=== PATIENT | female | born 1985 | race Caucasian/White ===

== ENCOUNTER 2018-11-30 16:29 | Inpatient (IN) | payer BC ==
[~2018-11-30] VITALS: Ht 157.5 cm; Wt 110.8 kg
[2018-11-30] MEDS ORDERED: ONDANSETRON PF 4 MG/2 ML VIAL. IVP ONE (17:00)
[2018-11-30] MEDS ORDERED: MORPHINE SULFATE 4 MG/ML DISP.SYRIN. IV ONE ×2 (17:00→20:15)
[2018-11-30] MEDS ORDERED: IV NORMAL SALINE 1,000ML 1,000 ML IV ONE (17:00)
--- NOTE | 2018-11-30 17:08 | PHYS DOC ---
Past History Past Medical History: Diabetes, GERD, Other Additional Past Medical Histor: PCOS (DERRELL TSE DO) Past Surgical History: No Surgical History (DERRELL TSE DO) Alcohol Use: None Drug Use: None (DERRELL TSE DO) Adult General Chief Complaint Chief Complaint: ABDOMINAL PAIN HPI HPI 33-year-old female presents with left-sided abdominal pain. This started around 8 AM this morning. The pain is intense cramping sensation that comes and goes in waves, but does not completely go away. At its worse it is severe. She now has nausea and vomiting due to the pain. She has not had pain like this before. She does have celiac disease, but her celiac flare do not feel like this and she has not had any wheat exposure. She has not had abdominal surgery. No history of diverticula or diverticulitis. She denies constipation. She denies dysuria or increased frequency. She denies fever or chills. (DERRELL TSE DO) Review of Systems Review of Systems Constitutional: Denies fever or chills [] Eyes: Denies change in visual acuity, redness, or eye pain [] HENT: Denies nasal congestion or sore throat [] Respiratory: Denies cough or shortness of breath [] Cardiovascular: No additional information not addressed in HPI [] GI: abdominal pain, nausea, vomiting. Denies bloody stools or diarrhea [] : Denies dysuria or hematuria [] Musculoskeletal: Denies back pain or joint pain [] Integument: Denies rash or skin lesions [] Neurologic: Denies headache, focal weakness or sensory changes [] Endocrine: Denies polyuria or polydipsia [] All other systems were reviewed and found to be within normal limits, except as documented in this note. (DERRELL TSE DO) Current Medications Current Medications Current Medications Medications (Trade) Dose Ordered Sig/Mary Start Time Stop Time Status Last Admin Dose Admin Morphine Sulfate (Morphine 4mg Syringe) 4 mg 1X ONCE 11/30/18 17:00 11/30/18 17:01 UNV Ondansetron HCl (Zofran) 4 mg 1X ONCE 11/30/18 17:00 11/30/18 17:01 DC Sodium Chloride 1,000 ml @ 1,000 mls/hr 1X ONCE 11/30/18 17:00 11/30/18 17:59 (DERRELL TSE DO) Allergies Allergies Allergies Coded Allergies Type Severity Reaction Last Updated Verified Sulfa (Sulfonamide Antibiotics) Allergy Unknown 11/30/18 Yes (DERRELL TSE DO) Physical Exam Physical Exam Constitutional: Well developed, well nourished, mild acute distress, non-toxic appearance. [] HENT: Normocephalic, atraumatic, bilateral external ears normal, oropharynx moist, no oral exudates, nose normal. [] Eyes: PERRLA, EOMI, conjunctiva normal, no discharge. [] Neck: Normal range of motion, no tenderness, supple, no stridor. [] Cardiovascular:Heart rate regular rhythm, no murmur [] Lungs & Thorax: Bilateral breath sounds clear to auscultation [] Abdomen: Bowel sounds normal, soft, left-sided tenderness without guarding, no masses, no pulsatile masses. [] Skin: Warm, dry, no erythema, no rash. [] Back: No tenderness, no CVA tenderness. [] Extremities: No tenderness, no cyanosis, no clubbing, ROM intact, no edema. [] Neurologic: Alert and oriented X 3, normal motor function, normal sensory function, no focal deficits noted. [] Psychologic: Affect normal, judgement normal, mood normal. [] (DERRELL TSE DO) Current Patient Data Vital Signs Vital Signs Date Time Temp Pulse Resp B/P (MAP) Pulse Ox O2 Delivery O2 Flow Rate FiO2 11/30/18 16:39 98.5 110 18 97 Room Air (DERRELL TSE DO) Lab Results Laboratory Tests Test 11/30/18 17:07 11/30/18 17:13 11/30/18 17:59 11/30/18 18:00 Urine Collection Type Unknown Urine Color Yellow Urine Clarity Hazy Urine pH 7.0 Urine Specific [place] 1.015 Urine Protein Neg Urine Glucose (UA) Neg mg/dL Urine Ketones (Stick) 15 mg/dL Urine Blood Neg Urine Nitrite Neg Urine Bilirubin Neg Urine Urobilinogen Dipstick 0.2 mg/dL Urine Leukocyte Esterase Small Urine RBC Rare /HPF Urine WBC 1-4 /HPF Urine Squamous Epithelial Cells Mod /LPF Urine Bacteria Few /HPF Urine Mucus Slight /LPF Urine Test Negative Bedside Urine HCG, Qualitative hcg negative White Blood Count 15.6 x10^3/uL Red Blood Count 4.66 x10^6/uL Hemoglobin 11.8 g/dL Hematocrit 36.7 % Mean Corpuscular Volume 79 fL Mean Corpuscular Hemoglobin 25 pg Mean Corpuscular Hemoglobin Concent 32 g/dL Red Cell Distribution Width 16.9 % Platelet Count 377 x10^3/uL Neutrophils (%) (Auto) 74 % Lymphocytes (%) (Auto) 21 % Monocytes (%) (Auto) 4 % Eosinophils (%) (Auto) 1 % Basophils (%) (Auto) 1 % Neutrophils # (Auto) 11.5 x10^3uL Lymphocytes # (Auto) 3.2 x10^3/uL Monocytes # (Auto) 0.6 x10^3/uL Eosinophils # (Auto) 0.2 x10^3/uL Basophils # (Auto) 0.1 x10^3/uL Segmented Neutrophils % 79 % Band Neutrophils % 1 % Lymphocytes % 19 % Monocytes % 0 % Eosinophils % 1 % Basophils % 0 % Platelet Estimate Adequate Anisocytosis Slight Sodium Level 138 mmol/L Potassium Level 3.7 mmol/L Chloride Level 102 mmol/L Carbon Dioxide Level 23 mmol/L Anion Gap 13 Blood Urea Nitrogen 9 mg/dL Creatinine 0.8 mg/dL Estimated GFR (Cockcroft-Gault) 82.6 BUN/Creatinine Ratio 11 Glucose Level 112 mg/dL Calcium Level 9.0 mg/dL Total Bilirubin 0.2 mg/dL Aspartate Amino Transf (AST/SGOT) 15 U/L Alanine Aminotransferase (ALT/SGPT) 24 U/L Alkaline Phosphatase 86 U/L Total Protein 7.8 g/dL Albumin 3.2 g/dL Albumin/Globulin Ratio 0.7 Lipase 385 U/L Current Medications Medications (Trade) Dose Ordered Sig/Mary Route PRN Reason Start Time Stop Time Status Last Admin Dose Admin Sodium Chloride 1,000 ml @ 1,000 mls/hr 1X ONCE IV 11/30/18 17:00 11/30/18 17:59 DC 11/30/18 18:34 Ondansetron HCl (Zofran) 4 mg 1X ONCE IVP 11/30/18 17:00 11/30/18 17:01 DC 11/30/18 18:34 Morphine Sulfate (Morphine 4mg Syringe) 4 mg 1X ONCE IV 11/30/18 17:00 11/30/18 17:04 DC 11/30/18 18:41 Iohexol (Omnipaque 300 Mg/ml) 75 ml 1X ONCE IV 11/30/18 17:15 11/30/18 17:21 DC 11/30/18 19:10 Morphine Sulfate (Morphine 4mg Syringe) 4 mg 1X ONCE IV 11/30/18 20:15 11/30/18 20:16 DC (SHAYAN BURNS MD) EKG EKG [] (DERRELL TSE DO) Radiology/Procedures Radiology/Procedures [] Impressions: Exam: CT abdomen and pelvis with contrast INDICATION: Abdominal pain TECHNIQUE: Sequential axial images through the abdomen and pelvis obtained following the administration of 75 mL of Omni 300 IV contrast. Sagittal and coronal reformatted images were reconstructed from the axial data and reviewed. Comparisons: None FINDINGS: Heart size is normal. No pericardial effusion. Visualized lung bases are clear. No pleural effusion. Mild hepatic steatosis. Spleen, gallbladder and adrenals are unremarkable. Mild inflammatory changes at the pancreatic tail. No peripancreatic fluid collection or ductal dilatation. Kidneys a straight symmetric enhancement. No perinephric inflammation or hydronephrosis. No renal or ureteral calculi are identified. Bladder is distended and appears thin-walled. Uterus is not enlarged. No abnormal adnexal mass. Large and small bowel are unremarkable. Appendix is normal. No free intra-abdominal air or fluid. No obstruction. Abdominal aorta has normal course and caliber. Abdominal vasculature is patent. No enlarged abdominal lymph nodes are identified. No suspicious osseous lesions or acute fractures. IMPRESSION: Inflammatory changes at the tail the pancreas, favored represent pancreatitis. No peripancreatic fluid collection. Correlate with appropriate lab values. Exposure: One or more of the following in the visualized dose reduction techniques were utilized for this examination: 1. Automated exposure control 2. Adjustment of the MA and/or KV according to patient size 3. Use of iterative of reconstructive technique Electronically signed by: Binh Colón MD (11/30/2018 7:29 PM) [facility] (DERRELL TSE DO) Radiology/Procedures PROCEDURE: CT ABD PELV W/ IV CONTRST ONLY Exam: CT abdomen and pelvis with contrast INDICATION: Abdominal pain TECHNIQUE: Sequential axial images through the abdomen and pelvis obtained following the administration of 75 mL of Omni 300 IV contrast. Sagittal and coronal reformatted images were reconstructed from the axial data and reviewed. Comparisons: None FINDINGS: Heart size is normal. No pericardial effusion. Visualized lung bases are clear. No pleural effusion. Mild hepatic steatosis. Spleen, gallbladder and adrenals are unremarkable. Mild inflammatory changes at the pancreatic tail. No peripancreatic fluid collection or ductal dilatation. Kidneys a straight symmetric enhancement. No perinephric inflammation or hydronephrosis. No renal or ureteral calculi are identified. Bladder is distended and appears thin-walled. Uterus is not enlarged. No abnormal adnexal mass. Large and small bowel are unremarkable. Appendix is normal. No free intra-abdominal air or fluid. No obstruction. Abdominal aorta has normal course and caliber. Abdominal vasculature is patent. No enlarged abdominal lymph nodes are identified. No suspicious osseous lesions or acute fractures. IMPRESSION: Inflammatory changes at the tail the pancreas, favored represent pancreatitis. No peripancreatic fluid collection. Correlate with appropriate lab values. (SHAYAN BURNS MD) Course & Med Decision Making Course & Med Decision Making Pertinent Labs and Imaging studies reviewed. (See chart for details) The patient was given a liter normal saline, 4 mg Zofran, and 4 mg of morphine. Patient's labs are unremarkable except for an elevated white count. CT scan is suggestive of pancreatitis. Lipase is ordered and is pending. I'm signing the patient out to Dr. Burns at 1945. He will determine her final disposition. [] (DERRELL TSE DO) Course & Med Decision Making 8:30 PM: Patient care was assumed at shift change, pending lab results and final disposition. She has had upper abdominal pain. She had similar episode a few weeks ago but resolved quickly. She has had nausea but no vomiting at this time. She does not drink alcohol but does have a history of hypertriglyceridemia. Her exam, which was repeated, does have some diffuse upper abdominal tenderness to palpation most prominent in the left upper quadrant. Her exam is consistent with pancreatitis although her lab values and imaging have conflicting results. She is still requiring medication for pain control and I discussed the case with the hospitalist who graciously agreed to admit the patient for further evaluation and treatment. (SHAYAN BURNS MD) Dragon Disclaimer Dragon Disclaimer This electronic medical record was generated, in whole or in part, using a voice recognition dictation system. (DERRELL TSE DO) Departure Departure: Impression: Primary Impression: Acute pancreatitis Additional Impression: Abdominal pain Disposition: 09 ADMITTED INPATIENT Admitting Physician: Darryl Rea (SHAYAN BURNS MD) Condition: STABLE Referrals: PCP,UNKNOWN (PCP) Problem Qualifiers DERRELL TSE DO Nov 30, 2018 17:08 SHAYAN BURNS MD Nov 30, 2018 20:51
[2018-11-30] MEDS ORDERED: IOHEXOL 300 MG/ML 75 ML VIAL. IV ONE (17:15)
[2018-11-30 17:39] LABS: U PREG PATIENT NEGATIVE (NEG)
[2018-11-30 17:53] LABS: BILIRUBIN,URINE NEG (NEG); CLARITY,URINE HAZY; COLOR,URINE YELLOW; GLUCOSE,URINE NEG (NEG)
[2018-11-30 17:54] LABS: BACTERIA,URINE FEW /HPF (0-FEW); NITRITE,URINE NEG (NEG); RBC,URINE RARE /HPF (0-2); SQUAMOUS EPITHELIAL CELL,UR MOD /LPF; UROBILINOGEN,URINE 0.2 mg/dL (0.2 mg/dL)
[2018-11-30 18:14] LABS: BASO # 0.1 x10^3/uL (0.0-0.2); BASO % 1 % (0-3); EOS # 0.2 x10^3/uL (0.0-0.7); EOS % 1 % (0-3); HEMATOCRIT 36.7 % (36.0-47.0); HEMOGLOBIN 11.8 g/dL (12.0-15.5); LYMPH # 3.2 x10^3/uL (1.0-4.8); LYMPH % 21 % (24-48); MEAN CORPUSCULAR HEMOGLOBIN 25 pg (25-35); MEAN CORPUSCULAR HGB CONC 32 g/dL (31-37); MEAN CORPUSCULAR VOLUME 79 fL (79-100); MONO # 0.6 x10^3/uL (0.0-1.1); MONO % 4 % (0-9); NEUT # 11.5 x10^3uL (1.8-7.7); NEUT % 74 % (31-73); PLATELET COUNT 377 x10^3/uL (140-400); RED BLOOD COUNT 4.66 x10^6/uL (3.50-5.40); RED CELL DISTRIBUTION WIDTH 16.9 % (11.5-14.5); WHITE BLOOD COUNT 15.6 x10^3/uL (4.0-11.0)
[2018-11-30 18:22] LABS: ALBUMIN 3.2 g/dL (3.4-5.0); ALBUMIN/GLOBULIN RATIO 0.7 (1.0-1.7); CREATININE 0.8 mg/dL (0.6-1.0); GFR 82.6; POTASSIUM 3.7 mmol/L (3.5-5.1); TOTAL BILIRUBIN 0.2 mg/dL (0.2-1.0); TOTAL PROTEIN 7.8 g/dL (6.4-8.2)
[2018-11-30 19:25] LABS: % BANDS 1 % (0-9); % BASOS 0 % (0-3); % EOS 1 % (0-5); % LYMPHS 19 % (24-48); % MONOS 0 % (0-10); % SEGS 79 % (35-66); ANISOCYTOSIS SLIGHT; PLT ESTIMATE ADEQUATE (ADEQUATE)
--- NOTE | 2018-11-30 19:32 | RAD ---
Exam: CT abdomen and pelvis with contrast INDICATION: Abdominal pain TECHNIQUE: Sequential axial images through the abdomen and pelvis obtained following the administration of 75 mL of Omni 300 IV contrast. Sagittal and coronal reformatted images were reconstructed from the axial data and reviewed. Comparisons: None FINDINGS: Heart size is normal. No pericardial effusion. Visualized lung bases are clear. No pleural effusion. Mild hepatic steatosis. Spleen, gallbladder and adrenals are unremarkable. Mild inflammatory changes at the pancreatic tail. No peripancreatic fluid collection or ductal dilatation. Kidneys a straight symmetric enhancement. No perinephric inflammation or hydronephrosis. No renal or ureteral calculi are identified. Bladder is distended and appears thin-walled. Uterus is not enlarged. No abnormal adnexal mass. Large and small bowel are unremarkable. Appendix is normal. No free intra-abdominal air or fluid. No obstruction. Abdominal aorta has normal course and caliber. Abdominal vasculature is patent. No enlarged abdominal lymph nodes are identified. No suspicious osseous lesions or acute fractures. IMPRESSION: Inflammatory changes at the tail the pancreas, favored represent pancreatitis. No peripancreatic fluid collection. Correlate with appropriate lab values. Exposure: One or more of the following in the visualized dose reduction techniques were utilized for this examination: 1. Automated exposure control 2. Adjustment of the MA and/or KV according to patient size 3. Use of iterative of reconstructive technique Electronically signed by: Binh Colón MD (11/30/2018 7:29 PM) [facility]
[2018-11-30] MEDS: ONDANSETRON PF 4 MG/2 ML VIAL. IV PRN (20:59)
[2018-11-30] MEDS ORDERED: IV DEXTROSE 5%-LACT RINGERS 1,000 ML IV ONE (21:00)
[2018-11-30 22:15] VITALS: BP 118/67
[2018-11-30] MEDS: MORPHINE SULFATE 4 MG/ML DISP.SYRIN. IV PRN (22:40)
[2018-11-30] MEDS: METOCLOPRAMIDE HCL 10 MG/2 ML VIAL. IVP PRN (23:13)
[2018-11-30] MEDS ORDERED: OMEP20CA10 PO (23:51)
[2018-11-30] MEDS ORDERED: FERR324T14 (23:51)
[2018-11-30] MEDS ORDERED: METF500T11 (23:51)
[2018-11-30] MEDS ORDERED: [UNRECOGNIZED DRUG - CODE] (23:51)
[2018-11-30] MEDS ORDERED: METF750T39 (23:51)
[2018-11-30] MEDS ORDERED: VITA1TAB3 PO (23:53)
[2018-11-30] MEDS ORDERED: CETI10TA22 PO (23:53)
[2018-11-30] MEDS ORDERED: MULT1TAB52 PO (23:53)
[2018-12-01 02:39] VITALS: BP 124/72
[2018-12-01 06:00] VITALS: BP 113/75
[2018-12-01] MEDS: MORPHINE SULFATE 4 MG/ML DISP.SYRIN. IV PRN (06:41)
[2018-12-01] MEDS: METOCLOPRAMIDE HCL 10 MG/2 ML VIAL. IVP PRN ×3 (07:34→22:34)
[2018-12-01] MEDS: HYDROmorphone PF 1 MG/ML DISP.SYRIN IV PRN ×3 (10:15→22:34)
[2018-12-01] MEDS: IV DEXTROSE 5%-LACT RINGERS 1,000 ML IV SCH ×2 (10:31→22:33)
[2018-12-01 10:32] VITALS: BP 120/68
[2018-12-01 10:58] LABS: ALBUMIN 2.8 g/dL (3.4-5.0); ALBUMIN/GLOBULIN RATIO 0.7 (1.0-1.7); CALCIUM 8.5 mg/dL (8.5-10.1); CREATININE 0.7 mg/dL (0.6-1.0); GFR 96.4; POTASSIUM 3.7 mmol/L (3.5-5.1); TOTAL BILIRUBIN 0.2 mg/dL (0.2-1.0); TOTAL PROTEIN 6.9 g/dL (6.4-8.2)
[2018-12-01 11:24] LABS: BASO % 0 % (0-3); EOS # 0.1 x10^3/uL (0.0-0.7); EOS % 1 % (0-3); HEMATOCRIT 34.7 % (36.0-47.0); LYMPH # 2.2 x10^3/uL (1.0-4.8); LYMPH % 15 % (24-48); MEAN CORPUSCULAR HEMOGLOBIN 25 pg (25-35); MEAN CORPUSCULAR HGB CONC 32 g/dL (31-37); MEAN CORPUSCULAR VOLUME 80 fL (79-100); MONO # 0.6 x10^3/uL (0.0-1.1); MONO % 4 % (0-9); NEUT # 11.5 x10^3uL (1.8-7.7); NEUT % 80 % (31-73); PLATELET COUNT 331 x10^3/uL (140-400); RED BLOOD COUNT 4.36 x10^6/uL (3.50-5.40); RED CELL DISTRIBUTION WIDTH 17.5 % (11.5-14.5); WHITE BLOOD COUNT 14.4 x10^3/uL (4.0-11.0)
[2018-12-01] MEDS: ONDANSETRON PF 4 MG/2 ML VIAL. IV PRN (12:23)
--- NOTE | 2018-12-01 13:56 | HP ---
ADMIT DATE: The patient is a 33-year-old female patient who came to the Emergency Room DICTATION ENDS HERE. VICKIE PACE MD DR: DUANE/christina JOB#: [id number] / [id number]
--- NOTE | 2018-12-01 17:14 | HP ---
ADMIT DATE: 11/30/2018 HISTORY OF PRESENT ILLNESS: The patient is a 33-year-old female patient who came to the Emergency Room complaining of left upper quadrant pain that started around 8:00 in the morning yesterday. The pain is described as intense cramping sensation that comes and goes in waves, does not completely go away. At its worst, it is severe and associated with nausea and vomiting due to the pain, has not had anything like this before. She does have celiac disease, but her celiac flare, do not feel like this and she has not had any wheat exposure and has not had any abdominal surgery, has no history of diverticulosis or diverticulitis. She denied any constipation. Denied any dysuria, frequency or hematuria. Denied any fevers, chills or rigors. She had a similar episode about a week ago but short lasting. She was investigated in the Emergency Room and her lab work showed that she has marked leukocytosis. Her chemistry showed that her serum lipase was at the upper limit of normal; however, CT scan of the abdomen and pelvis showed that she has inflammatory changes at the tail of the pancreas favored representing pancreatitis. No peripancreatic fluid collection. The patient was admitted for pain management. PAST MEDICAL HISTORY: Significant for celiac disease, polycystic ovary syndrome, iron deficiency anemia. She also has insulin resistance, hyperlipidemia and generalized osteoarthritis. PAST SURGICAL HISTORY: Significant for multiple skin lesion resection. ALLERGIES: SULFA DRUGS and GLUTEN. MEDICATIONS: She is on cetirizine 10 mg daily, ferrous fumarate 325 mg daily, omeprazole 20 mg daily, norethindrone/estradiol ____ 1 mg daily, metformin 500 mg extended release daily and metformin 750 mg at supper, vitamin B complex 1 tablet once a day, and multivitamin 1 tablet once a day. FAMILY HISTORY: She has 1 older sister who has a similar problem of polycystic ovary syndrome. Her father at the age of 49 committing suicide and mother is still alive at age of 59, has CVA at the age of 39. She apparently has cerebral aneurysm. SOCIAL HISTORY: She is , has 1 daughter. She does not drink alcohol or use any recreational drugs. She works for the [employer]. PHYSICAL EXAMINATION: GENERAL: On arrival to the Emergency Room, she looked well and was clearly in no apparent respiratory distress. No pallor, jaundice, cyanosis or thyromegaly. No jugular venous distention. No limb edema. VITAL SIGNS: Her heart rate was 110, blood pressure was 154/98, temperature was 98.5, respiratory rate was 18 and oxygen saturation was 97% on room air. HEAD, EYES, EARS, NOSE AND THROAT: Showed normocephalic, atraumatic. NECK: Supple. HEART: Showed normal first and second heart sounds. No gallop or murmur. CHEST: Clear to auscultation. No crepitation or rhonchi. ABDOMEN: Nontender. No guarding or rigidity. No organomegaly. All hernial orifice intact. Bowel sounds normal. NEUROLOGIC: She was awake, alert, responding appropriately. All cranial nerves intact. EXTREMITIES: She moves extremities without difficulty. She ambulates without assistance or assistive devices. LABORATORY DATA: As of yesterday showed a white cell count 15,600, hemoglobin 11, hematocrit 36, MCV 79 and platelet count 377,000 with normal manual differential. Her chemistry on admission showed a serum sodium 138, potassium 3.7, chloride 102, bicarbonate 23, anion gap of 13, BUN 9, creatinine 0.8, estimated GFR was 82, glucose 112, calcium was 9. Total bilirubin, AST, ALT, alkaline phosphatase were normal. Total protein was 7.8, albumin was 3.2. Her urinalysis showed the urine was yellow, hazy with a pH of 7, specific gravity of 1.015, the urine was negative for protein, glucose. There was a trace of ketones. The urine was negative for blood, nitrites, and leukocyte esterase. There are no rbc's, 1-4 wbc's and very few bacteria. Her urine test was negative. The CT scan of the abdomen and pelvis showed that the patient's heart size is normal, no pericardial effusion. Visualized lung bases are clear, no pleural effusion. She has mild hepatic steatosis. The spleen, gallbladder, and adrenals are unremarkable. Mildly symmetric pancreatic tail. No peripancreatic fluid collection, no ductal dilatation. Kidneys show symmetric enhancement. No perinephric inflammation or hydronephrosis, no renal or ureteral calculi identified. Her bladder is distended, appears thin walled. It is not enlarged. No abnormal adnexal masses are seen. Large and small bowel are unremarkable. Appendix is normal. No free intraabdominal air or fluid, no obstruction. Abdominal aorta has normal course and caliber. Abdominal vasculature is patent. No enlarged abdominal lymph nodes identified. No suspicious lesions or acute fracture. ASSESSMENT AND PLAN: The patient was admitted with pancreatitis. She was started on IV fluid, IV pain medication, antiemetic. We will monitor her lab work and obviously she was kept n.p.o. Once her pain is much better controlled, we will start on a clear liquid diet and advance as tolerated. VICKIE PACE MD DR: DUANE/christina JOB#: [id number] / [id number]
[2018-12-01 18:13] VITALS: BP 114/60
[2018-12-01 22:42] VITALS: BP 118/69
[2018-12-02 05:51] VITALS: BP 96/55
[2018-12-02] MEDS: METOCLOPRAMIDE HCL 10 MG/2 ML VIAL. IVP PRN ×2 (07:49→14:39)
[2018-12-02] MEDS ORDERED: LIDOCAINE 1% 50 ML VIAL. IV ONE (09:30)
[2018-12-02 10:00] LABS: HEMATOCRIT 32.4 % (36.0-47.0); HEMOGLOBIN 10.2 g/dL (12.0-15.5); RED BLOOD COUNT 4.04 x10^6/uL (3.50-5.40); RED CELL DISTRIBUTION WIDTH 17.4 % (11.5-14.5); WHITE BLOOD COUNT 13.5 x10^3/uL (4.0-11.0)
[2018-12-02] MEDS ORDERED: LIDOCAINE 1% Multi-Dose 20 ML VIAL. INJ ONE (10:00)
[2018-12-02 10:20] LABS: ALBUMIN 2.8 g/dL (3.4-5.0); ALBUMIN/GLOBULIN RATIO 0.7 (1.0-1.7); CALCIUM 8.5 mg/dL (8.5-10.1); CREATININE 0.7 mg/dL (0.6-1.0); GFR 96.4; POTASSIUM 3.6 mmol/L (3.5-5.1); TOTAL BILIRUBIN 0.2 mg/dL (0.2-1.0); TOTAL PROTEIN 6.7 g/dL (6.4-8.2)
[2018-12-02 10:43] VITALS: BP 123/76
[2018-12-02] MEDS ORDERED: IOHEXOL 300 MG/ML 75 ML VIAL. IV ONE (15:00)
[2018-12-02 17:36] VITALS: BP 134/70
[2018-12-02] MEDS: oxyCODONE IR 5 MG TABLET PO PRN ×2 (18:12→21:59)
[2018-12-02] MEDS: IV DEXTROSE 5%-LACT RINGERS 1,000 ML IV SCH (18:12)
--- NOTE | 2018-12-02 20:40 | RAD ---
CT ABDOMEN W/CONTRAST Indication: Continuing left upper quadrant pain, pancreatitis Technique: Postcontrast CT imaging was performed of the abdomen, multiplanar reconstruction images submitted. Pelvis was not imaged. There is some oral contrast present. One or more of the following individualized dose reduction techniques were utilized for this examination: 1. Automated exposure control 2. Adjustment of the mA and/or kV according to patient size 3. Use of iterative reconstruction technique. Comparison: 12/02/2018 Findings: There is increased prominent atelectasis of the visualized lung bases bilaterally, degree of mild consolidation with air bronchograms left lower lobe. Exam does not accurately evaluate for pulmonary embolic disease. There is no pleural fluid of the visualized lung bases. There is some persistent somewhat increased hazy and strandy inflammatory type density in the left upper quadrant near the tail of the pancreas and more medial to the proximal descending colon/splenic flexure. There is no defined fluid collection/abscess in this region although mild nonorganized fluid density extending along the superior left paracolic gutter. Both kidneys enhance, no hydronephrosis. No new focal abnormality is identified of the pancreas or liver. There is likely hepatic steatosis. There is hyperdensity in the gallbladder lumen now present likely due to vicarious excretion of contrast. Visualized bowel is not dilated. No free air is identified. IMPRESSION: 1. There is persistent somewhat increased hazy and strandy inflammatory type density in the left upper quadrant, also mild nonorganized fluid density, extent of change near the tail of pancreas concerning for pancreatitis. Findings are near although more more medial to the proximal descending colon/splenic flexure. 2. There is increased prominent atelectasis of the lung bases bilaterally. This exam does not accurately evaluate for pulmonary embolic disease. There is mild consolidation and air bronchograms of the left lower lobe. 3. There is likely hepatic steatosis. Electronically signed by: Samuel Rudolph MD (12/02/2018 8:37 PM) [facility]
[2018-12-02] MEDS: ONDANSETRON ODT 4 MG TAB.RAPDIS PO PRN (21:56)
[2018-12-03] MEDS: IV DEXTROSE 5%-LACT RINGERS 1,000 ML IV SCH (02:30)
[2018-12-03 06:27] VITALS: BP 121/68
[2018-12-03 06:47] LABS: HEMATOCRIT 30.7 % (36.0-47.0); HEMOGLOBIN 9.7 g/dL (12.0-15.5); RED BLOOD COUNT 3.86 x10^6/uL (3.50-5.40); RED CELL DISTRIBUTION WIDTH 17.1 % (11.5-14.5); WHITE BLOOD COUNT 11.9 x10^3/uL (4.0-11.0)
[2018-12-03 07:00] LABS: ALBUMIN 2.5 g/dL (3.4-5.0); ALBUMIN/GLOBULIN RATIO 0.6 (1.0-1.7); CALCIUM 8.4 mg/dL (8.5-10.1); CREATININE 0.8 mg/dL (0.6-1.0); GFR 82.6; POTASSIUM 3.5 mmol/L (3.5-5.1); TOTAL BILIRUBIN 0.3 mg/dL (0.2-1.0); TOTAL PROTEIN 6.8 g/dL (6.4-8.2)
[2018-12-03] MEDS: ONDANSETRON ODT 4 MG TAB.RAPDIS PO PRN ×2 (08:09→14:01)
[2018-12-03] MEDS: oxyCODONE IR 5 MG TABLET PO PRN ×2 (08:09→14:02)
[2018-12-03 10:40] VITALS: BP 128/77
[2018-12-03] MEDS ORDERED: OXYC5TAB4 PO (15:47)
[2018-12-03] MEDS ORDERED: ONDA4TAB7 PO (15:47)
[2018-12-03] MEDS ORDERED: metFORMIN XR 500 MG TAB.ER.24H PO SCH (17:00)
--- NOTE | 2018-12-03 21:53 | DS ---
DATE OF DISCHARGE: 12/03/2018 HOSPITAL COURSE: The patient is a 33-year-old female patient who was admitted with complaints of pain in the left upper quadrant. She was evaluated in the Emergency Room and CT scan of the abdomen and pelvis showed that she has inflammatory changes at the tail of the pancreas favoring representing acute pancreatitis, although there was no perinephric fluid collection and in fact lipase was normal. She was admitted initially ____ and started on a clear liquid diet, advanced as tolerated. She continued to have the pain, is somewhat improved; however, she continued to be thought to be nauseous. I did repeat the CT scan again and second CT scan of the abdomen showed that there is persistent and somewhat hazy and stranding inflammatory type density in the left upper quadrant, also mild non-organized fluid density, extensive changes near the tail of the pancreas concerning for pancreatitis. Her serum lipase was normal and in fact today ____ units. Her white cell count also came down to 15,600 to 11,900. I made it clear to the patient that she probably needs to be seen by a parts classifier and was discharged home to continue with pain medication, antiemetic. She will be advised to follow with her primary care physician. If her symptoms worsen at any time she needs to come to nearest Emergency Room; however, I preferably recommended that she should go to the [facility] and/or [facility] or [facility]. I provided her with copies of her CT scan of the abdomen and pelvis. PHYSICAL EXAMINATION: GENERAL: When I saw her this afternoon, she looked well and was clearly in no apparent respiratory distress. No pallor, jaundice, cyanosis, or thyromegaly. No jugular venous distension. No limb edema. VITAL SIGNS: Her heart rate was 103, blood pressure was 128/77, temperature was 98.2, respiratory rate 20, and oxygen saturation was 94%. HEAD, EYES, EARS, NOSE, AND THROAT: Normocephalic, atraumatic. NECK: Supple. HEART: Showed normal first and second heart sounds with no gallop or murmur. CHEST: Clear to auscultation. No crepitation or rhonchi. ABDOMEN: Distended, soft, nontender. NEUROLOGIC: She is awake, alert, responding appropriately. All cranial nerves intact. She ambulates without assistance or assistive devices. LABORATORY DATA: Her lab work this morning showed a white cell count 11,900, hemoglobin 9.7, hematocrit 30.7, MCV 79, and platelet count 303,000. Her chemistry showed a serum sodium 143, potassium 3.5, chloride 105, bicarbonate 27, anion gap of 11, BUN 5, creatinine 0.8, estimated GFR was 82 mL per minute, her glucose was 97, calcium was 8.4. Total bilirubin, AST, ALT, alkaline phosphatase were normal. Total protein was 6.8, albumin was 2.5. Her serum lipase this morning was 123 units per liter. ____ her lipase has never been above the upper limit of normal. Her serum triglycerides were slightly elevated 205, total cholesterol 212, LDL was 125, VLDL was 41, HDL was 46, and the ratio was 4. DISCHARGE MEDICATIONS: Discharged on Zofran ODT 4 mg every 4 hours as needed, oxycodone immediate release 5 mg every 4 hours as needed, cetirizine or Zyrtec 10 mg once a day, ferrous fumarate 324 mg once a day, omeprazole 20 mg daily, Aurovela 24 control pills 1 mg daily, metformin 500 mg extended release once a day, metformin 750 mg extended release with supper, vitamin B-complex 1 tablet once a day, and multivitamin 1 tablet once a day. FINAL DISCHARGE DIAGNOSES: Acute pancreatitis, both clinically and on CT scan; however, serum lipase was normal. Other medical problems include celiac disease, polycystic ovary syndrome, iron-deficiency anemia, impaired glucose tolerance, hyperlipidemia, and generalized osteoarthritis. VICKIE PACE MD DR: DUANE/christina JOB#: [id number] / [id number]
--- NOTE | 2018-12-04 03:44 | PN ---
DATE: 12/02/2018 SUBJECTIVE: The patient is sitting up today, feeling generally much better. She had a shower. She feels that she is better when standing than lying. She still has some pain ____. She was switched to fentanyl 100 mcg IV every 2 hours. Her pain seems to be much better controlled. She seems to be on IV fluid. Her lipase is down to 222, which was initially elevated; serum triglycerides is around 205; otherwise all her other enzymes, particularly her liver enzymes are all normal. PHYSICAL EXAMINATION: GENERAL: When I examined her, she looked well and was clearly in no apparent respiratory distress. No pallor, jaundice, cyanosis or thyromegaly. No jugular venous distention. No limb edema. VITAL SIGNS: Her heart rate was 103, blood pressure was 123/76, temperature was 98.5, respiratory rate 20, and oxygen saturation was 94%. HEAD, EYES, EARS, NOSE AND THROAT: Showed normocephalic, atraumatic. NECK: Supple. HEART: Showed normal first and second heart sounds. No gallop or murmur. CHEST: Clear to auscultation. No crepitation or rhonchi. ABDOMEN: Distended with tenderness mostly in the left upper quadrant. No guarding or rigidity. No organomegaly. NEUROLOGICAL: Awake, alert, responding appropriately. All cranial nerves intact. She moves extremities without difficulty. She ambulates without assistance or assistive devices. Her intake was 1000. No output was recorded as of this morning. LABORATORY DATA: Sodium 142, potassium 3.6, chloride 104, bicarbonate 26, anion gap of 12, BUN 6, creatinine was 0.7, estimated GFR was 96 mL per minute. Her glucose was 109, calcium was 8.5. Total bilirubin, AST, ALT, alkaline phosphatase were normal. Total protein was 6.7, albumin was 2.3. Lipase was 222. White count 13,500, hemoglobin 10, hematocrit 32, MCV 80, and platelet count 303,000. Urinalysis was essentially unremarkable. Her urine culture showed mixed urogenital maggie 50,000-100,000 colony forming units/mL. ASSESSMENT: Acute pancreatitis, which is not very clear. The CT scan of the abdomen and pelvis showed that there are inflammatory changes at the tail of the pancreas, favored represents pancreatitis. No peripancreatic fluid collection. She is consistent with her complaint of pain in her left upper quadrant that goes through and through to the back, although surprisingly, her lipase when she arrived was normal. Other medical problems include polycystic ovary syndrome, celiac disease, iron deficiency anemia. She also has insulin resistance, impaired glucose tolerance, hyperlipidemia, and generalized osteoarthritis. PLAN: My plan is to arrange for her to have another CT scan of the abdomen and pelvis with IV contrast and we will advance her diet and if there is no change or improvement, then she can probably be discharged tomorrow. VICKIE PACE MD DR: DUANE/christina JOB#: [id number] / [id number]
[2018-12-04] MEDS ORDERED: PANTOPRAZOLE 40 MG TABLET. PO SCH (07:30)
[2018-12-04] MEDS ORDERED: FERROUS SULFATE 325 MG TABLET. PO SCH (08:00)
[2018-12-04] MEDS ORDERED: NORETHINDRONE E ESTRADIOL IRON SCH (09:00)
[2018-12-04] MEDS ORDERED: metFORMIN XR 500 MG TAB.ER.24H PO SCH (09:00)
[2018-12-04] MEDS ORDERED: CETIRIZINE HCL 10 MG TABLET PO SCH (09:00)
[2018-12-04] MEDS ORDERED: VITAMIN B COMPLEX CAPSULE. PO SCH (09:00)
[2018-12-04] MEDS ORDERED: MULTIVITAMIN with MINERAL TABLET. PO SCH (09:00)
== END 2018-12-03 16:06 | disposition home or self-care (01) | DRG 438 ==
LOC: EDSEX 16:29 → ER 16:29 → ICU 20:52 → ER 21:59
PROVIDERS: ADMIT Internal Medicine; ATTEND Internal Medicine
DX: K85.90 Acute pancreatitis without necrosis or infection, unspecified (principal); E43 Unspecified severe protein-calorie malnutrition; Z68.41 Body mass index [BMI] 40.0-44.9, adult; E11.9 Type 2 diabetes mellitus without complications; K90.0 Celiac disease; E28.2 Polycystic ovarian syndrome; K21.9 Gastro-esophageal reflux disease without esophagitis; M15.9 Polyosteoarthritis, unspecified; E78.5 Hyperlipidemia, unspecified; Z88.2 Allergy status to sulfonamides; Z82.3 Family history of stroke; D50.9 Iron deficiency anemia, unspecified; E78.1 Pure hyperglyceridemia
CPT/HCPCS: 36415; 74160; 74177; 80053; 80061; 81001; 81025; 82150; 83690; 85007; 85025; 85027; 87086; 96361; 96374; 96375; 96376; J1170; J2270; J2405; J2765; J3010; Q0162; Q9967; 99285-25; J7030